=== PATIENT | male | born 1940 | race Caucasian/White ===

== ENCOUNTER → 2016-10-23 | Day surgery (SDC) | payer MEDICARE, OTHER ==
[~2016-10-23] VITALS: Ht 167.6 cm; Wt 70.3 kg
[2016-10-23 06:43] LABS: HCT 45.3 % (42.0-52.0); HGB 15.1 g/dl (13.2-18.0); MCH 29.7 pg (25.0-31.0); MCHC 33.3 g/dL (32.0-36.0); MPV 11.5 fL (6.0-9.5); RBC 5.09 M/uL (4.70-6.00); RDW 14.2 % (11.5-14.0); WBC 6.6 K/uL (4.0-10.5)
== END | disposition home or self-care (01) ==
LOC: FAS 06:06
PROVIDERS: Legal Medicine
DX: G56.02 Carpal tunnel syndrome, left upper limb (principal); M19.90 Unspecified osteoarthritis, unspecified site; K21.9 Gastro-esophageal reflux disease without esophagitis; E03.9 Hypothyroidism, unspecified; G47.30 Sleep apnea, unspecified; Z88.8 Allergy status to other drugs, medicaments and biological substances
CPT/HCPCS: 36415; J2405; J2704; J2795; J3010